=== PATIENT | female | born 1975 | race Caucasian/White ===

== ENCOUNTER → 2016-12-26 | Outpatient (CLI) | payer OTHER ==
[2016-12-26 17:28] LABS: CONTROL LINE HCG INT CTR LINE PRESENT
[2016-12-26 17:42] LABS: FREE T4 0.82 NG/DL (0.76-1.46)
== END ==
LOC: M WUC 13:57
PROVIDERS: ATTEND Obstetrics & Gynecology
DX: N92.1 Excessive and frequent menstruation with irregular cycle (principal)

== ENCOUNTER → 2017-01-12 | Day surgery (SDC) | payer OTHER ==
[~2017-01-12] VITALS: Ht 170.2 cm; Wt 68.0 kg
[~2017-01-12] MED LIST: IBUPROFEN 600 MG TAB PO PRN; KETOROLAC 60 MG/2 ML VIAL (J1885) As Ordered ONE; LIDOCAINE 2% INJ 100 MG/5 ML SDV (FOR ANES.) As Ordered ONE; LR 1,000 ML IV SCH; MEDR1VL IM; MIDAZOLAM INJ 2 MG/2 ML VIAL (J2250) As Ordered ONE; NORCO, ANEXSIA 5/325MG TABLET (HYDROcodone/ACETAMINOPHEN) PO PRN; ONDANSETRON 4MG/2ML VIAL (J2405) As Ordered ONE; ONDANSETRON 4MG/2ML VIAL (J2405) IV PRN; PERCOCET 5MG/325MG TAB PO PRN; PROPOFOL 200 MG/20 ML VIAL As Ordered ONE; VALA500T PO; fentaNYL 100 MCG/2 ML INJECTION (J3010) As Ordered ONE
[2017-01-12 06:47] LABS: CONTROL LINE UCG INT CTR LINE PRESENT
--- NOTE | 2017-01-12 08:45 | RO ---
DATE OF PROCEDURE: 01/12/2017 PREOPERATIVE DIAGNOSES/INDICATION FOR SURGERY: Menorrhagia, dysmenorrhea, failed suppression on Depo-Provera. POSTOPERATIVE DIAGNOSES: ___same PROCEDURE: Dilation and curettage (D and C), hysteroscopy, NovaSure ablation. SURGEON: Ghada Weeks MD ENTRY LEVEL TRUCK DRIVER: ANESTHESIA: Laryngeal mask airway (LMA). BRIEF DESCRIPTION OF PROCEDURE AND FINDINGS: Rosalina was brought to the operating room where sufficient LMA anesthesia was induced and she was prepped, draped and positioned in the usual sterile fashion with the weighted speculum placed, the bladder emptied and the anterior aspect of the cervix grasped with a single- tooth tenaculum. The uterus was sounded to 7.5. The endocervical cavity length was sounded to 3.5, giving a uterine corpus cavity length of 4. Subsequent width was measured at 2.5, but at this point, we only had length of 4. Subsequently, dilated the cervix enough to allow introduction of the hysteroscope, which was used to visualize the endometrial cavity, and normal tubal ostia were seen there. There was no evidence of perforation or uterine injury. There was a thinned out endometrial lining consistent with the Depo-Provera use, and no lesions. Curettage was carried out and then the NovaSure ablative device was placed. Again, length set at 4, width set at 2.5 after measurement. She passed a cavity assessment and an uncomplicated NovaSure ablation was then carried out. Estimated blood loss for the procedure was 5 mL or less. Fluid replacement was crystalloid. Complications: None. Condition and disposition: Rosalina tolerated the procedure well and was recovering in the recovery room in good condition. MALOU
[2017-01-12 08:58] VITALS: BP 130/56
== END | disposition home or self-care (01) ==
LOC: M SDC 06:03
PROVIDERS: ATTEND Obstetrics & Gynecology
DX: N92.0 Excessive and frequent menstruation with regular cycle (principal); N94.6 Dysmenorrhea, unspecified; Z79.899 Other long term (current) drug therapy
CPT/HCPCS: 58563; 84703; 88305; A4649; J1885; J2250; J2405; J3010

== ENCOUNTER → 2017-07-27 | Outpatient (CLI) | payer OTHER ==
[~2017-07-27] MED LIST changes: -IBUPROFEN 600 MG TAB PO PRN; -KETOROLAC 60 MG/2 ML VIAL (J1885) As Ordered ONE; -LIDOCAINE 2% INJ 100 MG/5 ML SDV (FOR ANES.) As Ordered ONE; -LR 1,000 ML IV SCH; -MIDAZOLAM INJ 2 MG/2 ML VIAL (J2250) As Ordered ONE; -NORCO, ANEXSIA 5/325MG TABLET (HYDROcodone/ACETAMINOPHEN) PO PRN; -ONDANSETRON 4MG/2ML VIAL (J2405) As Ordered ONE; -ONDANSETRON 4MG/2ML VIAL (J2405) IV PRN; -PERCOCET 5MG/325MG TAB PO PRN; -PROPOFOL 200 MG/20 ML VIAL As Ordered ONE; -VALA500T PO; +VALA500T2 PO; -fentaNYL 100 MCG/2 ML INJECTION (J3010) As Ordered ONE
--- NOTE | 2017-07-27 16:52 | REPMRS ---
Patient History The patient states she had a clinical breast exam in 05/2017. No known family history of cancer. Retro-pectoral silicone gel implants in both breasts, 2007. Took unspecified hormones for 1 year. Digital Woman Screen Mammo: July 27, 2017 - Exam #: [id number] Bilateral CC and MLO view(s) were taken. Technologist: Enedina Stanton, Technologist Prior study comparison: July 19, 2016, digital woman screen mammo performed at [facility]. FINDINGS: There are scattered fibroglandular densities. The visualized implant margins are smooth. Breast parenchymal density pattern is essentially symmetric. No dominant mass, clustered microcalcification, or archetectural distortion is evident on either side. No significant changes when compared with prior studies. ASSESSMENT: BI-RADS/ACR category 2 mammogram. Benign finding(s). Recommendation Routine screening mammogram of both breasts in 1 year (for women over age 40). Electronically Signed By: Will Paul MD 07/27/17 [id number]
== END ==
LOC: M WHC 15:51
PROVIDERS: ATTEND Nurse Practitioner Women's Health
DX: Z12.31 Encounter for screening mammogram for malignant neoplasm of breast (principal); Z98.82 Breast implant status; R92.8 Other abnormal and inconclusive findings on diagnostic imaging of breast

== ENCOUNTER → 2018-07-31 | Outpatient (CLI) | payer OTHER | LOC: M WHC 08:31 | DX: Z12.31 Encounter for screening mammogram for malignant neoplasm of breast (principal); Z92.89 Personal history of other medical treatment; Z92.29 Personal history of other drug therapy | CPT/HCPCS: 77067 ==

== ENCOUNTER → 2019-08-02 | Outpatient (CLI) | payer OTHER ==
[~2019-08-02] MED LIST changes: -VALA500T2 PO; +VALA500T5 PO
--- NOTE | 2019-08-02 09:23 | REPMRS ---
Patient History The patient states she had a clinical breast exam in 06/2019. No known family history of cancer. Retro-pectoral silicone gel implants in both breasts, 2007. Took unspecified hormones for 1 year. 3D TOMOSYNTHESIS WAS PERFORMED. The [facility] lifetime risk for breast cancer is 12.7%. Digital Woman Screen Mammo: August 02, 2019 - Exam #: [id number] Bilateral CC and MLO view(s) were taken. Technologist: Enedina Stanton, Technologist Prior study comparison: July 31, 2018, bilateral digital woman screen mammo performed at [facility]. July 27, 2017, digital woman screen mamm[facility]. FINDINGS: The breast tissue is extremely dense which could obscure a lesion on mammography. There is a fairly symmetric fibroglandular pattern in both breasts. There has been no interval development of masses, areas of architectural distortion or clusters of microcalcifications typical of malignancy. Two iintramammary lymph nodes are seen in the lateral right breast. No significant changes when compared with prior studies. Assessment: BI-RADS/ACR category 2 mammogram. Benign Findings. Recommendation Routine screening mammogram of both breasts in 1 year (for women over age 40). This mammogram was interpreted with the aid of an FDA-approved computer-aided dectection system. Electronically Signed By: Peter Michaud MD 08/02/19 0922
== END ==
LOC: M WHC 08:00
PROVIDERS: ATTEND Nurse Practitioner Women's Health
DX: Z12.31 Encounter for screening mammogram for malignant neoplasm of breast (principal); Z98.82 Breast implant status

== ENCOUNTER → 2020-08-28 | Outpatient (CLI) | payer OTHER ==
--- NOTE | 2020-08-28 10:27 | REPMRS ---
Patient History No known family history of cancer. Retro-pectoral silicone gel implants in both breasts, 2007. Took unspecified hormones for 1 year. 3D TOMOSYNTHESIS WAS PERFORMED. The [facility] lifetime risk for breast cancer is 12.5%. [place] Digital Woman Screen Mammo: August 28, 2020 - Exam #: [id number] Bilateral CC and MLO view(s) were taken. Technologist: Daisy Lin, Technologist Prior study comparison: August 02, 2019, bilateral digital woman screen mammo performed at [facility]. July 31, 2018, bilateral digital woman screen mammo performed at [facility]. FINDINGS: The breast tissue is heterogeneously dense. This may lower the sensitivity of mammography. There is a fairly symmetric fibroglandular pattern in both breasts. There has been no interval development of masses, areas of architectural distortion or clusters of microcalcifications typical of malignancy. No significant changes when compared with prior studies. Assessment: BI-RADS/ACR category 2 mammogram. Benign Findings. Recommendation Routine screening mammogram of both breasts in 1 year (for women over age 40). This mammogram was interpreted with the aid of an FDA-approved computer-aided dectection system. Electronically Signed By: Peter Michaud MD 08/28/20 [id number]
== END ==
LOC: M WHC 09:42
PROVIDERS: ATTEND Obstetrics & Gynecology
DX: Z12.31 Encounter for screening mammogram for malignant neoplasm of breast (principal); Z98.82 Breast implant status

== ENCOUNTER → 2020-10-30 | Outpatient (CLI) | payer SELFPAY | LOC: M LABSMTC 09:57 | PROVIDERS: ATTEND Pediatrics | DX: Z20.828 Contact with and (suspected) exposure to other viral communicable diseases (principal) ==

== ENCOUNTER → 2021-09-15 | Outpatient (CLI) | payer OTHER ==
--- NOTE | 2021-09-16 13:27 | REP ---
INDICATION: ENCTR SCREEN MAMMO FOR MALIGNANT NEOPLASM OF BREAST. COMPARISON: Multiple prior screening examinations, the most recent, 08/28/2020 TECHNIQUE: Digital screening (2D) mammography was performed bilaterally in the CC and MLO projections. Additionally, breast tomosynthesis (3D mammography) was performed bilaterally in the CC and MLO projections. FINDINGS: By history, the patient has no complaints of a palpable breast abnormality or other significant breast complaints. The Volpara volumetric breast density pattern is D, the breasts are extremely dense, which lowers the sensitivity of mammography. There are bilateral retropectoral silicone breast implants. In the retroareolar area of the left breast directly medial to the nipple at the 9 o'clock position, there is a questionable developing asymmetry. There are multiple stable benign intramammary lymph nodes, on the right. IMPRESSION: BIRADS/ACR : Category 0: Incomplete, need additional imaging evaluation. This patient's Tyrer-Cuzick lifetime breast cancer risk assessment score is 12.4%. This mammogram was interpreted with the aid of an FDA-approved computer-aided detection system. Due to the density of the breasts, MRI/whole breast screening ultrasound is warranted. The patient states she had a clinical breast exam on 09/06/2021. The patient letter being requested is M0. RECOMMENDATION: 3D focal compression of the left breast in the CC and MLO orientations. Focal left breast ultrasound. <Electronically signed by Josh Jacobo > 09/16/21 [id number]
== END ==
LOC: M WHC 16:06
PROVIDERS: ATTEND Obstetrics & Gynecology
DX: Z12.31 Encounter for screening mammogram for malignant neoplasm of breast (principal); Z98.82 Breast implant status

== ENCOUNTER → 2021-10-01 | Outpatient (CLI) | payer OTHER ==
--- NOTE | 2021-10-01 09:32 | REP ---
INDICATION: LEFT BREAST ADD VIEWS. COMPARISON: 09/15/2021 as well as other prior exams. TECHNIQUE: Spot compression views left breast with tomosynthesis, in multiple projections. FINDINGS: The suspected left retroareolar asymmetry compresses out to an unchanged appearance when compared to prior studies. There is no persistent nodule or architectural distortion. IMPRESSION: BIRADS/ACR category 1, negative. No persistent asymmetry, nodule or architectural distortion in the left retroareolar region on today's additional views. This mammogram was interpreted with the aid of an FDA-approved computer-aided detection system. The patient letter being requested is M 1. RECOMMENDATION: Repeat screening mammography recommended 1 year (for women over 40). <Electronically signed by Peter Michaud > 10/01/21 0933
== END ==
LOC: M WHC 08:30
PROVIDERS: ATTEND Obstetrics & Gynecology
DX: R92.2 Inconclusive mammogram (principal)
CPT/HCPCS: 77065; G0279

== ENCOUNTER → 2023-01-04 | Outpatient (REF) | payer OTHER | LOC: M SFHCWAGY 13:03 | PROVIDERS: ATTEND Nurse Practitioner Family | DX: Z12.4 Encounter for screening for malignant neoplasm of cervix (principal) | CPT/HCPCS: 87624; G0123 ==

== ENCOUNTER → 2023-01-04 | Outpatient (CLI) | payer OTHER | LOC: M WHC 08:36 | PROVIDERS: ATTEND Nurse Practitioner Family | DX: Z12.31 Encounter for screening mammogram for malignant neoplasm of breast (principal) ==

== ENCOUNTER → 2024-01-05 | Outpatient (CLI) | payer OTHER | LOC: M WHC 07:56 | PROVIDERS: ATTEND Internal Medicine | DX: Z12.31 Encounter for screening mammogram for malignant neoplasm of breast (principal) ==

== ENCOUNTER → 2025-01-06 | Outpatient (CLI) | payer OTHER | LOC: M WHC 15:57 | PROVIDERS: ATTEND Internal Medicine | DX: Z12.31 Encounter for screening mammogram for malignant neoplasm of breast (principal); Z98.82 Breast implant status ==

== ENCOUNTER → 2025-02-07 | Outpatient (CLI) | payer OTHER | LOC: M WUC 10:29 | PROVIDERS: ATTEND Nurse Practitioner Family | DX: M79.672 Pain in left foot (principal) ==

== ENCOUNTER 2025-10-07 13:50 | Emergency (ER) | payer OTHER ==
[~2025-10-07] VITALS: Ht 170.2 cm; Wt 71.6 kg
[2025-10-07 13:52] VITALS: TEMP 98.6
[2025-10-07] MEDS ORDERED: ESTR1DIS5 (15:02)
[2025-10-07] MEDS ORDERED: FEZO45TA (15:02)
[2025-10-07] MEDS ORDERED: PROG1CAP8 (15:02)
[2025-10-07] MEDS: KETOROLAC 30 MG/ML 1 ML VIAL IV ONE (17:23)
[2025-10-07 17:30] VITALS: BP 152/102; O2SAT 100
[2025-10-07 17:35] LABS: ALT/SGPT 21 U/L (7.0-40); AST/SGOT 26 U/L (<34); CALCIUM LEVEL 9.1 MG/DL (8.5-10.1); CARBON DIOXIDE LEVEL 27 MMOL/L (20-31); CHLORIDE LEVEL 103 MMOL/L (98-107); CREATININE FOR GFR 0.60 MG/DL (0.55-1.30); GLOMERULAR FILTRATION RATE > 90.0 (>51); POTASSIUM SERUM 4.3 MMOL/L (3.5-5.1); SODIUM LEVEL 140 MMOL/L (136-145)
[2025-10-07 17:38] LABS: BASO # 0.0 10^3/uL (0.0-0.2); BASO % 0.8 % (0.0-1.0); EOS # 0.1 10^3/uL (0.0-0.5); EOS % 2.1 % (0.0-3.0); LYMPH # 1.6 10^3/uL (1.5-5.0); LYMPH % 30.9 % (24.0-44.0); MONO # 0.4 10^3/uL (0.0-0.8); MONO % 7.2 % (2.0-8.0); NEUTROPHILS # 3.1 10^3/uL (1.5-8.5); NEUTROPHILS % 58.8 % (36.0-66.0); PLATELET COUNT, AUTOMATED 210 10^3/uL (150-450)
[2025-10-07] MEDS ORDERED: ISOVUE-370 76% 100 ML VIAL As Ordered ONE (17:40)
== END 2025-10-07 20:06 | disposition home or self-care (01) ==
LOC: M ED 13:50
DX: M54.50 Low back pain, unspecified (principal); R20.0 Anesthesia of skin; M62.830 Muscle spasm of back; F10.10 Alcohol abuse, uncomplicated; F17.200 Nicotine dependence, unspecified, uncomplicated; Z79.899 Other long term (current) drug therapy
CPT/HCPCS: 70450; 71275; 80047; 80048; 80076; 85025; 93971; 96374; 99284; J1885; Q9967